=== PATIENT | male | born 1945 | race Caucasian/White ===

== ENCOUNTER 2016-10-12 07:16 | Day surgery (SDC) | payer OTHER ==
[2016-10-06 11:37] VITALS: BMI 25.0
[2016-10-12] MEDS ORDERED: PROPOFOL 20 ML ONE ×2 (07:24)
[2016-10-12] MEDS ORDERED: LIDOCAINE HCL/PF 2% SDV 5ML VIAL ONE (07:27)
[2016-10-12 09:37] VITALS: BP 118/66; PULSE 63; TEMP 97.9
== END 2016-10-12 09:30 | disposition home or self-care (01) ==
LOC: FASU-ENDO 07:16
PROVIDERS: ATTEND Internal Medicine Gastroenterology
PROC: 0DJD8ZZ Inspection of Lower Intestinal Tract, Via Natural or Artificial Opening Endoscopic (ICD-10-PCS; principal; 2016-10-12 08:11)
DX: Z12.11 Encounter for screening for malignant neoplasm of colon (principal)

== ENCOUNTER 2022-03-07 07:56 | Day surgery (SDC) | payer OTHER ==
[2022-03-04 08:50] VITALS: BMI 23.7
[2022-03-07 09:37] VITALS: PULSE 59; RESP 16; TEMP 98
[2022-03-07 10:08] VITALS: BP 111/62
== END 2022-03-07 10:15 | disposition home or self-care (01) ==
LOC: FASU-ENDO 07:56
PROVIDERS: ATTEND Internal Medicine Gastroenterology
PROC: 0DJD8ZZ Inspection of Lower Intestinal Tract, Via Natural or Artificial Opening Endoscopic (ICD-10-PCS; principal; 2022-03-07 08:58)
DX: Z12.11 Encounter for screening for malignant neoplasm of colon (principal); Z83.71 Family history of colonic polyps

== ENCOUNTER 2022-08-28 11:20 | Emergency (ER) | payer OTHER ==
[2022-08-28 11:29] VITALS: RESP 18; TEMP 98.1; BMI 23.7
[2022-08-28] MEDS ORDERED: LIDOCAINE HCL 2% (20ML MULTI-DOSE VIAL) ONE (11:44)
[2022-08-28] MEDS ORDERED: SODIUM CHLORIDE 500 ML IV STA (12:44)
[2022-08-28 13:08] LABS: MCH 34.9 pg (25.7-33.7); MCHC 34.1 g/dl (32.0-35.9); MEAN CELL VOLUME 102.4 fl (80-96); MEAN PLT VOLUME 7.1 fl (7.5-11.1); PLATELET COUNT 127.2 10^3/uL (134-434); RDW 13.7 % (11.9-15.9); WHITE BLOOD COUNT 6.7 10^3/uL (4.0-10.8)
[2022-08-28 13:23] LABS: BILIRUBIN,TOTAL 0.7 mg/dl (0.2-1); CALCIUM 9.1 mg/dl (8.5-10); CREATININE 1.3 mg/dl (0.55-1.3); TOT PROT 6.8 g/dl (6.4-8.2)
[2022-08-28 14:17] LABS: PLATELET ESTIMATE SLT DECREASE
[2022-08-28 14:43] VITALS: BP 113/68; PULSE 61
== END 2022-08-28 15:07 | disposition home or self-care (01) ==
LOC: FER 11:20
PROC: 0HQGXZZ Repair Left Hand Skin, External Approach (ICD-10-PCS; principal; 2022-08-28)
DX: R55 Syncope and collapse (principal); S61.211A Laceration without foreign body of left index finger without damage to nail, initial encounter; W27.2XXA Contact with scissors, initial encounter; Y93.H2 Activity, gardening and landscaping
CPT/HCPCS: 36415; 80053; 84484; 85027; 93005; 99284-25

== ENCOUNTER 2022-09-15 10:32 | Emergency (ER) | payer OTHER ==
[2022-09-15 10:39] VITALS: BP 113/72; PULSE 83; RESP 15; TEMP 98.9; BMI 23.5
== END 2022-09-15 11:02 | disposition home or self-care (01) ==
LOC: FER 10:32
DX: Z48.02 Encounter for removal of sutures (principal)
CPT/HCPCS: 99282-25

== ENCOUNTER 2023-10-11 13:06 | Emergency (ER) | payer OTHER, MEDICARE ==
[2023-10-11 13:24] VITALS: BP 123/78; PULSE 70; RESP 16; TEMP 98.7; BMI 23.3
== END 2023-10-11 14:55 | disposition home or self-care (01) ==
LOC: FER 13:06
PROC: 0HQ0XZZ Repair Scalp Skin, External Approach (ICD-10-PCS; principal; 2023-10-11)
DX: S01.01XA Laceration without foreign body of scalp, initial encounter (principal); W22.8XXA Striking against or struck by other objects, initial encounter
CPT/HCPCS: 70450-TC; 99284-25

== ENCOUNTER 2023-10-20 12:55 | Emergency (ER) | payer OTHER, MEDICARE ==
[2023-10-20 13:08] VITALS: BP 132/81; PULSE 80; RESP 18; TEMP 97.8; BMI 24.6
== END 2023-10-20 13:17 | disposition home or self-care (01) ==
LOC: FER 12:55
DX: Z48.02 Encounter for removal of sutures (principal)
CPT/HCPCS: 99281-25

== ENCOUNTER 2023-12-29 12:28 | Emergency (ER) | payer OTHER, MEDICARE ==
[2023-12-29 12:35] VITALS: BP 130/86; PULSE 95; RESP 18; TEMP 97.5; BMI 23.7
== END 2023-12-29 13:47 | disposition home or self-care (01) ==
LOC: FER 12:28
PROC: 0HQ0XZZ Repair Scalp Skin, External Approach (ICD-10-PCS; principal; 2023-12-29)
DX: S01.01XA Laceration without foreign body of scalp, initial encounter (principal); W22.8XXA Striking against or struck by other objects, initial encounter
CPT/HCPCS: 70450-TC; 99284-25

== ENCOUNTER 2024-01-07 11:21 | Emergency (ER) | payer OTHER, MEDICARE ==
[2024-01-07 11:36] VITALS: BP 142/90; PULSE 69; RESP 16; TEMP 97.2; BMI 23.7
== END 2024-01-07 11:48 | disposition home or self-care (01) ==
LOC: FER 11:21
DX: Z48.02 Encounter for removal of sutures (principal)
CPT/HCPCS: 99281-25